=== PATIENT | male | born 1975 | race African-American/Black ===

== ENCOUNTER 2018-10-17 07:19 | Inpatient (IN) | payer MEDICAID, OTHER ==
[~2018-10-17] VITALS: Ht 175.3 cm; Wt 71.3 kg
[2018-10-17 07:52] LABS: Basophils # (auto) 0.1 uL; Basophils % (auto) 1.1 % (0.0-2.0); Eosinophils # (auto) 0.2 uL; Eosinophils % (auto) 3.6 % (0.0-7.0); Hematocrit 48.3 % (41.0-53.0); Hemoglobin 15.7 g/dL (13.5-17.5); Lymphocytes % (auto) 41.6 % (10.0-50.0); Mean Corpuscular Hemoglobin 30.5 pg (28.0-32.0); Mean Corpuscular Hgb Conc. 32.6 g/dL (32.0-36.0); Mean Corpuscular Volume 93.7 fL (80.0-100.0); Monocytes # (auto) 0.3 uL; Neutrophils # (auto) 2.3 uL; Neutrophils % (auto) 46.7 % (37.0-80.0); Nucleated Red Blood Cells % 0.1 %; Platelet Count (auto) 303 10^3/uL (140-450); Red Blood Cells 5.15 10^6/uL (4.5-5.90); Red Cell Distribution Width 12.7 % (11.8-14.3); White Blood Cell 4.9 10^3/uL (4.4-10.8)
[2018-10-17 08:09] LABS: Albumin 3.8 g/dL (3.4-5.0); BUN/Creatinine Ratio 10.3; Calcium 8.9 mg/dL (8.5-10.1); Magnesium 2.4 mg/dL (1.6-2.6)
[2018-10-17 08:14] LABS: Bilirubin, Total 0.7 mg/dL (0.2-1.0); Total Protein 7.3 g/dL (6.4-8.2)
[2018-10-17] MEDS ORDERED: ONDANSETRON HCL 4 MG/2 ML VIAL IV ONE (09:00)
[2018-10-17] MEDS ORDERED: MORPHINE SULF INJ 2 MG/ML SYRINGE 1ML IV ONE (09:00)
[2018-10-17] MEDS ORDERED: ASPirin 81 mg TAB PO ONE (10:00)
[2018-10-17] MEDS ORDERED: ENOXAPARIN SOD 80 MG/0.8ML SYRINGE SC ONE (10:30)
[2018-10-17] MEDS: SODIUM CHLORIDE 0.9% 1,000 ML IV SCH ×2 (10:44→22:55)
[2018-10-17] MEDS ORDERED: ACETAMINOPHEN 500 MG TAB PO PRN (10:45)
[2018-10-17] MEDS ORDERED: TEMAZEPAM 15 MG CAP PO PRN (10:45)
[2018-10-17] MEDS ORDERED: LACTULOSE 20Gm/30ML SOLN PO PRN (10:45)
[2018-10-17] MEDS ORDERED: traMADol HCL 50 MG TAB PO PRN (10:45)
[2018-10-17] MEDS ORDERED: PROMETHAZINE HCL 25 MG/ML 1ML IV PRN (10:45)
[2018-10-17] MEDS ORDERED: NITROGLYCERIN 50MG/250ML 250 ML IV ONE (11:00)
[2018-10-17 11:36] LABS: INR 0.99 (0.9-1.15); Partial Thromboplastin Time 27.3 sec (23.78-33.04); Prothrombin Time 10.6 sec (9.27-12.13)
[2018-10-17] MEDS ORDERED: fentaNYL CITRATE 100 MCG/2 ML VL ONE (12:13)
[2018-10-17] MEDS ORDERED: ANGIOMAX 250 MG VIAL IV ONE (12:13)
[2018-10-17] MEDS ORDERED: MIDAZOLAM HCL 1MG/1ML-2 ML VIAL ONE (12:13)
[2018-10-17] MEDS ORDERED: SODIUM CHL 0.9% 50 ML ONE (12:13)
[2018-10-17] MEDS ORDERED: LIDOCAINE 2%HCL (LOCAL ANESTH.) INJ 20ML MDV ONE (12:14)
[2018-10-17] MEDS ORDERED: IOHEXOL 350 MG/ML 100ML IJ ONE ×2 (12:14→12:45)
[2018-10-17] MEDS ORDERED: ATROPINE SULFATE 1 MG/1 ML VIAL ONE (12:19)
[2018-10-17 12:38] LABS: Urine Bacteria NONE SEEN /hpf (None Seen); Urine Blood Negative /uL (Negative); Urine Specific Gravity 1.021 (1.001-1.035); Urine WBC 1 /hpf (0 - 3)
[2018-10-17 12:49] LABS: Alcohol, Urine < 3.0 mg/dL (0-5); Amphetamine Screen, Urine NEGATIVE (NEGATIVE); Barbiturate Scree,Urine NEGATIVE (NEGATIVE); Benzodiazephine Screen, Urine NEGATIVE (NEGATIVE); Cannabinoid Screen, Urine NEGATIVE (NEGATIVE); Cocaine Screen, Urine NEGATIVE (NEGATIVE); Opiate Scree,Urine NEGATIVE (NEGATIVE); Phencyclidine Screen, Urine NEGATIVE (NEGATIVE)
--- NOTE | 2018-10-17 12:55 | NUR ---
Telemetry admit from SHIPPING SERVICES SALES REPRESENTATIVE WYATT GARCIA admitted to Telemetry unit after SBAR received. Patient oriented to JUANCHO BULLOCK RN primary RN, unit, room, bed, and unit policies regarding patient care and visiting hours. Patient now on continuous telemetry monitoring, tele box # [id number] and telemetry reading on arrival to unit is . Patient placed on bedside oxygen, weighed by bedscale and encouraged to call if they need something. All questions and concerns addressed, patient verbalized understanding. Note:
[2018-10-17] MEDS: MORPHINE SULF INJ 2 MG/ML SYRINGE 1ML IV PRN ×2 (13:40→17:25)
--- NOTE | 2018-10-17 14:39 | NUR ---
PCP PATIENT STATED HE DOES NOT HAVE A PRIMARY DOCTOR, PATIENT INFORMED OF STAFF MEMBER RAMON MENDEZ TO HELP ASSIST IN ARRANGING NEW PCP, PATIENT AND FAMILY/FRIEND ACCEPTED CARD AND HAVE BEEN ENCOURAGED TO CALL.
[2018-10-17 17:00] VITALS: BP 149/98
[2018-10-17] MEDS: NITROGLYCERIN 0.4 MG SL TAB SL PRN ×2 (17:15→17:21)
--- NOTE | 2018-10-17 17:15 | NUR ---
RE: CHEST PAIN PATIENT STATED THAT THEY ARE HAVING CHEST PAIN 10/10 PRESSURE WITH NO RADIATION. OBTAIN VITAL BP 157/96, HR 72, RR 18, O2 SAT 98%. GAVE PATIENT 1 NITRO SUBLINGUAL PILL. WILL CONTINUE TO MONITOR.
--- NOTE | 2018-10-17 17:20 | NUR ---
RE: CHEST PAIN PATIENTS CHEST PAIN STILL AT 10/10 WITH PRESSURE NO RADIATION. VITAL BP 154/83, HR 74, O2 SAT 99%. SECOND DOSE OF NITRO GIVEN SUBLINGUAL. WILL CONTINUE TO MONITOR AND WILL NOTIFY .
--- NOTE | 2018-10-17 17:37 | NUR ---
RE: CHEST PAIN PATIENT STATED THAT THEY ARE STILL HAVING CHEST PAIN 01/16. VITAL BP 130/80, HR 69, 02 SAT 99%. MORPHINE GIVEN. EKG PLACED IN CHART READ BY PHYSICIAN.
[2018-10-17] MEDS ORDERED: KETOROLAC TROMETH 30 MG/ML 1ML VIAL IV PRN (18:45)
--- NOTE | 2018-10-17 19:06 | NUR ---
Opening Shift Note Assumed care of patient, awake and alert x4. No S/S of distress/SOB or pain. Dressing on right groin is C/D/I. Bed is in lowest position, side rails up x2, brakes locked, call light is within reach. Instructed on POC and to call for assist PRN, will continue to monitor for changes Q1hr and PRN.
[2018-10-17] MEDS: COLCHICINE 0.6 MG CAP PO SCH (21:10)
[2018-10-17] MEDS: METOPROLOL TARTRATE 25 MG TAB PO SCH (21:10)
[2018-10-17 22:00] VITALS: BP 137/81
[2018-10-17] MEDS ORDERED: ENOXAPARIN SOD 80 MG/0.8ML SYRINGE SC SCH (22:00)
[2018-10-17] MEDS ORDERED: ATORVASTATIN 20 MG TAB PO SCH (22:00)
[2018-10-18 04:50] VITALS: BP 130/71
--- NOTE | 2018-10-18 07:06 | NUR ---
Endorsed care to armando Lara.
[2018-10-18 07:13] LABS: Cholesterol 179 mg/dL (< 200); Triglycerides 83 mg/dL (< 150)
[2018-10-18 07:15] LABS: HDL Cholesterol 43 mg/dL (40-59); LDL Cholesterol 123 mg/dL (< 100)
[2018-10-18 09:05] VITALS: BP 148/80
[2018-10-18] MEDS: PANTOPRAZOLE 40 MG TAB PO SCH (09:35)
[2018-10-18] MEDS: BENAZEPRIL HCL 10 MG TAB PO SCH (09:36)
[2018-10-18] MEDS: METOPROLOL TARTRATE 25 MG TAB PO SCH ×2 (09:36→22:00)
[2018-10-18] MEDS: ASPirin 81 mg TAB PO SCH (09:36)
[2018-10-18] MEDS ORDERED: NITROGLYCERIN 0.2MG/HR TOPICAL PATCH TD SCH (10:00)
[2018-10-18] MEDS: COLCHICINE 0.6 MG CAP PO SCH ×3 (10:00→22:00)
[2018-10-18 12:34] VITALS: BP 124/81
[2018-10-18] MEDS: SODIUM CHLORIDE 0.9% 1,000 ML IV SCH (13:24)
--- NOTE | 2018-10-18 16:45 | NUR ---
Re: medication Patient stated that they don't have gout. Informed will clarify with the MD regarding the usage of the medication if not related to gout (look up med on [employer]). 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 Thus educated patient on other underlining usage of colchicine.
[2018-10-18 17:09] VITALS: BP 125/80
--- NOTE | 2018-10-18 19:20 | NUR ---
Opening Note Assumed care of patient, awake and alert x4. No S/S of distress/SOB or pain. Call light is within reach, bed is in lowest position, santos rails up x2. AMA to smoke is in the hard chart. Instructed on POC and to call for assist PRN, will continue to monitor for changes Q1hr and PRN.
[2018-10-18 22:00] VITALS: BP 121/70
[2018-10-19] MEDS: SODIUM CHLORIDE 0.9% 1,000 ML IV SCH ×2 (02:44→16:04)
[2018-10-19 05:03] VITALS: BP 133/61
[2018-10-19 06:02] LABS: Basophils # (auto) 0 uL; Basophils % (auto) 0.2 % (0.0-2.0); Eosinophils # (auto) 0.2 uL; Eosinophils % (auto) 3.3 % (0.0-7.0); Hematocrit 43.3 % (41.0-53.0); Hemoglobin 14.4 g/dL (13.5-17.5); Lymphocytes % (auto) 37.7 % (10.0-50.0); Mean Corpuscular Hgb Conc. 33.2 g/dL (32.0-36.0); Mean Corpuscular Volume 93.4 fL (80.0-100.0); Monocytes # (auto) 0.5 uL; Monocytes % (auto) 9.8 % (0.0-12.0); Neutrophils # (auto) 2.5 uL; Platelet Count (auto) 266 10^3/uL (140-450); Red Blood Cells 4.64 10^6/uL (4.5-5.90); Red Cell Distribution Width 12.6 % (11.8-14.3); White Blood Cell 5.2 10^3/uL (4.4-10.8)
[2018-10-19 06:13] LABS: Albumin 3.4 g/dL (3.4-5.0); BUN/Creatinine Ratio 9.7; Calcium 8.4 mg/dL (8.5-10.1); Potassium 4.1 mmol/L (3.5-5.1)
[2018-10-19 06:17] LABS: Bilirubin, Total 0.7 mg/dL (0.2-1.0); Total Protein 6.7 g/dL (6.4-8.2)
--- NOTE | 2018-10-19 06:29 | NUR ---
Critical lab value received Troponin level was 10.8. Will page Dr. Sarkar.
--- NOTE | 2018-10-19 06:36 | NUR ---
Paged Dr. Sarkar.
--- NOTE | 2018-10-19 07:32 | NUR ---
Paged hospitalist regarding critical lab value.
--- NOTE | 2018-10-19 07:33 | NUR ---
Hospitalist Marisabel Mcmanus SLOT EDITOR called back. No new orders received for elevated troponin level.
--- NOTE | 2018-10-19 08:20 | NUR ---
OPENING SHIFT NOTE Received report on patient. Patient A&Ox4. C/O ABD pain 08/16. Reports this as tolerable at this time. POC discussed with patient. Patient instructed to use call caal if assistance is needed. Bed is in low locked position and call caal is within reach.
[2018-10-19 08:50] VITALS: BP 120/73
[2018-10-19] MEDS: PANTOPRAZOLE 40 MG TAB PO SCH (09:54)
[2018-10-19] MEDS: METOPROLOL TARTRATE 25 MG TAB PO SCH (09:55)
[2018-10-19] MEDS: ASPirin 81 mg TAB PO SCH (09:55)
[2018-10-19] MEDS: BENAZEPRIL HCL 10 MG TAB PO SCH (09:56)
[2018-10-19] MEDS: COLCHICINE 0.6 MG CAP PO SCH (09:58)
--- NOTE | 2018-10-19 10:30 | NUR ---
Dr. Hill at bed side to see pt, doctor aware of the high troponin level.
--- NOTE | 2018-10-19 10:31 | NUR ---
civil technician at bed side performing the echocardiogram.
--- NOTE | 2018-10-19 12:25 | NUR ---
Called and left a message to Dr. Sarkar to inform him the troponin levels, trop level this AM 10.800 and most recent trop level ordered by Dr. Hill is 8.580, awaiting call back.
--- NOTE | 2018-10-19 12:47 | NUR ---
Called and spoke to Dr. Hill and inform him regarding troponin level 0.580, orders to inform Dr. Sarkar / soldering machine operator of troponing levels.
--- NOTE | 2018-10-19 12:48 | NUR ---
Received call back from Dr. Sarkar / principal process engineer, doctor informed the troponin levels of 10.800 and the 1055 trop level of 8.580, no orders received just to continue with the colchicine.
[2018-10-19 12:52] VITALS: BP 117/74
[2018-10-19 16:15] VITALS: BP 122/73
[2018-10-19 16:24] VITALS: BP 122/73
--- NOTE | 2018-10-19 16:50 | NUR ---
Discharge instructions given as ordered. Encourage to follow up with PMD as instructed. Pt given [facility] office and [facility] information and an urgent care coupon. All questions and concerns addressed. Patient verbalized understanding. Medication reconciliation form completed and copy given to patient. [place] medications held in Pharmacy, and no needed vaccines to be given. IV removed with catheter intact, pressure dressing applied. Telemetry unit returned to [facility].
--- NOTE | 2018-10-19 16:55 | NUR ---
Patient walked out of the hospital with all personal belongings, accompanied by staff and family member. No distress noted at time of departure.
== END 2018-10-19 16:55 | disposition home or self-care (01) | DRG 192 ==
LOC: ER 07:27 → TELE 10:47 → TELE-WESTW 14:14
PROVIDERS: ADMIT Internal Medicine; ATTEND Internal Medicine
PROC: B2111ZZ Fluoroscopy of Multiple Coronary Arteries using Low Osmolar Contrast (ICD-10-PCS; principal; 2018-10-17)
PROC: 4A023N7 Measurement of Cardiac Sampling and Pressure, Left Heart, Percutaneous Approach (ICD-10-PCS; 2018-10-17)
PROC: B2151ZZ Fluoroscopy of Left Heart using Low Osmolar Contrast (ICD-10-PCS; 2018-10-17)
DX: I40.9 Acute myocarditis, unspecified (principal); N17.0 Acute kidney failure with tubular necrosis; I45.10 Unspecified right bundle-branch block; F12.90 Cannabis use, unspecified, uncomplicated; F17.210 Nicotine dependence, cigarettes, uncomplicated; I12.9 Hypertensive chronic kidney disease with stage 1 through stage 4 chronic kidney disease, or unspecified chronic kidney disease; M94.0 Chondrocostal junction syndrome [Tietze]; N18.9 Chronic kidney disease, unspecified; Z79.899 Other long term (current) drug therapy
CPT/HCPCS: 36415; 71046; 80053; 80061; 80307; 81001; 82550; 83735; 84484; 85025; 85379; 85610; 85652; 85730; 86141; 86658; 86850; 86900; 86901; 93005; 93306; 93458; 96372; 96374; 96375; 99152; G0378; J0461; J1885; J2250; J2405